=== PATIENT | male | born 1945 | race Caucasian/White ===

== ENCOUNTER → 2017-02-01 | Outpatient (REF) | payer MEDICARE, MEDICAID | LOC: M LAB REF 17:13 | PROVIDERS: ATTEND Internal Medicine | DX: Z51.81 Encounter for therapeutic drug level monitoring (principal); Z79.899 Other long term (current) drug therapy; F31.9 Bipolar disorder, unspecified ==

== ENCOUNTER → 2017-08-02 | Outpatient (REF) | payer MEDICARE, MEDICAID ==
[2017-08-07 00:06] LABS: Lyme Disease IgG/IgM Antibodie <0.91 ISR (0.00-0.90); Lyme Disease IgM Ab Quantitati <0.80 index (0.00-0.79)
== END ==
LOC: M LAB REF 17:07
PROVIDERS: ATTEND Internal Medicine
DX: Z51.81 Encounter for therapeutic drug level monitoring (principal); Z79.899 Other long term (current) drug therapy; F31.9 Bipolar disorder, unspecified; Z11.59 Encounter for screening for other viral diseases

== ENCOUNTER 2018-01-18 17:36 | Emergency (ER) | payer MEDICARE, MEDICAID ==
[2018-01-18] MEDS ORDERED: LIDOCAINE 2% MDV 20 ML VIAL As Ordered (18:10)
[2018-01-18] MEDS: LIDOCAINE 2% MDV 20 ML VIAL SC (18:30)
== END 2018-01-18 19:47 | disposition home or self-care (01) ==
LOC: M ED 17:36
DX: S63.282A Dislocation of proximal interphalangeal joint of right middle finger, initial encounter (principal); S83.92XA Sprain of unspecified site of left knee, initial encounter; S60.222A Contusion of left hand, initial encounter; S80.212A Abrasion, left knee, initial encounter; W11.XXXA Fall on and from ladder, initial encounter; Y92.099 Unspecified place in other non-institutional residence as the place of occurrence of the external cause; Y93.89 Activity, other specified; Y99.9 Unspecified external cause status; Z86.711 Personal history of pulmonary embolism; Z87.891 Personal history of nicotine dependence; Z79.01 Long term (current) use of anticoagulants; Z79.899 Other long term (current) drug therapy
CPT/HCPCS: 73130

== ENCOUNTER → 2018-02-19 | Outpatient (REF) | payer MEDICARE ==
[2018-02-19 19:22] LABS: LITHIUM LEVEL 0.39 MEQ/L (0.60-1.20)
== END ==
LOC: M LAB REF 17:41
DX: Z51.81 Encounter for therapeutic drug level monitoring (principal); F31.9 Bipolar disorder, unspecified; Z79.899 Other long term (current) drug therapy
CPT/HCPCS: 80178

== ENCOUNTER 2018-04-28 09:58 | Day surgery (SDC) | payer MEDICARE, MEDICAID ==
[2018-04-28] MEDS ORDERED: LIDOCAINE 2% INJ 100 MG/5 ML SDV (FOR ANES.) As Ordered (11:00)
[2018-04-28] MEDS ORDERED: PROPOFOL 200 MG/20 ML VIAL As Ordered ×3 (11:00→11:21)
== END 2018-04-28 12:10 | disposition home or self-care (01) ==
LOC: M OPP 09:58
DX: Z12.11 Encounter for screening for malignant neoplasm of colon (principal); Z86.010 Personal history of colon polyps; D12.4 Benign neoplasm of descending colon; D12.5 Benign neoplasm of sigmoid colon; K64.0 First degree hemorrhoids; K57.30 Diverticulosis of large intestine without perforation or abscess without bleeding; D68.51 Activated protein C resistance; N40.1 Benign prostatic hyperplasia with lower urinary tract symptoms; Z86.711 Personal history of pulmonary embolism; Z87.891 Personal history of nicotine dependence; Z79.01 Long term (current) use of anticoagulants; Z79.899 Other long term (current) drug therapy
CPT/HCPCS: 45385

== ENCOUNTER → 2018-08-20 | Outpatient (REF) | payer MEDICARE, MEDICAID ==
[~2018-08-20] MED LIST: FINA5TAB2; LITH150C; WARF-23
[2018-08-20 18:22] LABS: LITHIUM LEVEL 0.37 MEQ/L (0.60-1.20); RHEUMATOID FACTOR QUANT < 10.0 IU/ML (<15.0)
[2018-08-20 18:27] LABS: TESTOSTERONE 331 NG/DL (241-827)
[2018-08-26 00:06] LABS: Lyme Disease IgG Ab 18 kDa Ban Absent (.); Lyme Disease IgG Ab 23 kDa Ban Absent (.); Lyme Disease IgG Ab 28 kDa Ban Absent (.); Lyme Disease IgG Ab 30 kDa Ban Absent (.); Lyme Disease IgG Ab 39 kDa Ban Absent (.); Lyme Disease IgG Ab 41 kDa Ban Absent (.); Lyme Disease IgG Ab 45 kDa Ban Absent (.); Lyme Disease IgG Ab 58 kDa Ban Absent (.); Lyme Disease IgG Ab 66 kDa Ban Absent (.); Lyme Disease IgG Ab 93 kDa Ban Absent (.); Lyme Disease IgG West Blot Int Negative (.); Lyme Disease IgG/IgM Antibodie 0.98 ISR (0.00-0.90); Lyme Disease IgM Ab 23 kDa Ban Absent (.); Lyme Disease IgM Ab 39 kDa Ban Absent (.); Lyme Disease IgM Ab 41 kDa Ban Absent (.); Lyme Disease IgM Ab Quantitati <0.80 index (0.00-0.79); Lyme Disease IgM West Blot Int Negative (.)
== END ==
LOC: M LAB REF 17:34
PROVIDERS: ATTEND Internal Medicine
DX: Z51.81 Encounter for therapeutic drug level monitoring (principal); Z79.01 Long term (current) use of anticoagulants; M25.50 Pain in unspecified joint; R53.83 Other fatigue

== ENCOUNTER → 2019-03-05 | Outpatient (REF) | payer MEDICARE, MEDICAID | LOC: M LAB REF 16:56 | PROVIDERS: ATTEND Internal Medicine | DX: F31.9 Bipolar disorder, unspecified (principal); Z51.81 Encounter for therapeutic drug level monitoring ==

== ENCOUNTER → 2019-10-05 | Outpatient (REF) | payer MEDICARE ==
[2019-10-08 00:06] LABS: Lyme Disease IgG/IgM Antibodie <0.91 ISR (0.00-0.90); Lyme Disease IgM Ab Quantitati <0.80 index (0.00-0.79)
== END ==
LOC: M LAB REF 16:32
PROVIDERS: ATTEND Internal Medicine
DX: F31.9 Bipolar disorder, unspecified (principal)

== ENCOUNTER → 2020-04-04 | Outpatient (REF) | payer MEDICARE | LOC: M LAB REF 17:32 | PROVIDERS: ATTEND Internal Medicine | DX: F31.9 Bipolar disorder, unspecified (principal) ==

== ENCOUNTER → 2020-10-11 | Outpatient (REF) | payer MEDICARE ==
[2020-10-12 13:35] LABS: LITHIUM LEVEL 0.38 MEQ/L (0.60-1.20); RHEUMATOID FACTOR QUANT < 10.0 IU/ML (<15.0)
== END ==
LOC: M LAB REF 12:07
PROVIDERS: ATTEND Internal Medicine
DX: M15.9 Polyosteoarthritis, unspecified (principal); Z51.81 Encounter for therapeutic drug level monitoring; F31.9 Bipolar disorder, unspecified

== ENCOUNTER → 2021-01-05 | Outpatient (CLI) | payer MEDICARE ==
--- NOTE | 2021-01-05 15:41 | REP ---
INDICATION: LT LEG PAIN SWELLING ? DVT COMPARISON: None. TECHNIQUE: Donovan scale and color Doppler evaluation left lower extremity using linear high frequency transducer. FINDINGS: Ultrasound examination of the left lower extremity deep venous structures from the common femoral vein to the popliteal vein demonstrates normal compressibility flow and wave patterns in response to respiration and augmentation. Evaluation below the popliteal vein is somewhat limited due to edema, but no obvious thrombus identified in the visualized in peroneal, anterior or posterior tibial veins. Right common femoral vein is patent. IMPRESSION: No evidence for deep venous thrombosis. <Electronically signed by Kane Daigle > 01/05/21 [id number]
== END ==
LOC: M RAD 14:17
PROVIDERS: ATTEND Nurse Practitioner Adult Health
DX: M79.605 Pain in left leg (principal)

== ENCOUNTER → 2021-04-18 | Outpatient (REF) | payer MEDICARE | LOC: M LAB REF 16:41 | PROVIDERS: ATTEND Internal Medicine | DX: Z51.81 Encounter for therapeutic drug level monitoring (principal) ==

== ENCOUNTER → 2021-10-10 | Outpatient (CLI) | payer MEDICARE | LOC: M CARPUL 09:19 | PROVIDERS: ATTEND Internal Medicine | DX: R60.9 Edema, unspecified (principal) ==

== ENCOUNTER 2022-05-17 16:11 | Inpatient (IN) | payer MEDICARE ==
[~2022-05-17] VITALS: Ht 177.8 cm; Wt 99.8 kg
[2022-05-17] MEDS ORDERED: HYDROmorphone 4MG TABLET PO PRN (16:40)
[2022-05-17] MEDS ORDERED: ONDANSETRON 4MG TAB PO PRN (16:40)
[2022-05-17] MEDS: HYDROMORPHONE HCL 0.5 MG/ 0.5 ML SYRINGE (J1170 PER 1) IV PRN ×2 (17:03→17:37)
[2022-05-17] MEDS ORDERED: ISOVUE-370 76% 100ML VIAL As Ordered ONE (17:05)
[2022-05-17] MEDS ORDERED: diazePAM 10MG/2ML SYRINGE (J3360 PER 5MG) IV ONE (20:25)
[2022-05-17] MEDS ORDERED: METHOCARBAMOL 1,000 MG/10 ML VIAL (J2800) IV ONE (23:25)
[2022-05-17] MEDS ORDERED: ACETAMINOPHEN TAB 650MG DOSE (2X325MG) PO PRN (23:55)
[2022-05-17] MEDS ORDERED: HYDROMORPHONE HCL 0.5 MG/ 0.5 ML SYRINGE (J1170 PER 1) IV PRN (23:55)
[2022-05-18] VITALS (9 sets, daily range): BP systolic 151–184; BP diastolic 73–85; O2SAT 92–95
[2022-05-18] MEDS: HYDROMORPHONE HCL 0.5 MG/ 0.5 ML SYRINGE (J1170 PER 1) IV PRN ×5 (01:04→21:14)
[2022-05-18 01:13] LABS: BASO # 0.1 10^3/uL (0.0-0.2); BASO % 0.4 % (0.0-1.0); EOS % 0.1 % (0.0-3.0); HEMATOCRIT 48.3 % (42.0-52.0); HEMOGLOBIN 16.3 g/dl (13.5-17.5); LYMPH # 0.8 10^3/uL (1.5-5.0); MEAN CORPUSCULAR HEMOGLOBIN 30.6 pg (27.0-33.0); MEAN CORPUSCULAR HGB CONC 33.7 g/dl (32.0-36.5); MEAN CORPUSCULAR VOLUME 90.6 fl (80.0-96.0); MONO # 0.5 10^3/uL (0.0-0.8); MONO % 3.3 % (2.0-8.0); NEUTROPHILS # 12.5 10^3/uL (1.5-8.5); NEUTROPHILS % 89.6 % (36.0-66.0); PLATELET COUNT, AUTOMATED 258 10^3/uL (150-450); RED BLOOD COUNT 5.33 10^6/uL (4.30-6.10)
[2022-05-18 01:45] LABS: RSV AMPLIFICATION NEGATIVE (NEGATIVE)
[2022-05-18 01:51] LABS: CALCIUM LEVEL 9.3 MG/DL (8.8-10.2); CREATININE FOR GFR 1.66 MG/DL (0.70-1.30); MAGNESIUM LEVEL 2.1 MG/DL (1.8-2.4); POTASSIUM SERUM 4.1 MEQ/L (3.5-5.1)
[2022-05-18] MEDS ORDERED: KETO2SHA8 TOP (04:03)
[2022-05-18] MEDS ORDERED: FINA5TAB2 PO (04:03)
[2022-05-18] MEDS ORDERED: WARF-23 PO (04:03)
[2022-05-18] MEDS ORDERED: LITH150C PO (04:03)
[2022-05-18 07:34] LABS: HEMATOCRIT 46.5 % (42.0-52.0); HEMOGLOBIN 15.7 g/dl (13.5-17.5); MEAN CORPUSCULAR HEMOGLOBIN 31.4 pg (27.0-33.0); MEAN CORPUSCULAR HGB CONC 33.8 g/dl (32.0-36.5); PLATELET COUNT, AUTOMATED 245 10^3/uL (150-450); WHITE BLOOD COUNT 12.6 10^3/uL (4.0-10.0)
[2022-05-18 08:15] LABS: ALBUMIN 3.6 GM/DL (3.2-5.2); BILIRUBIN,TOTAL 0.7 MG/DL (0.2-1.0); CALCIUM LEVEL 9.1 MG/DL (8.8-10.2); CREATININE FOR GFR 1.51 MG/DL (0.70-1.30); GLOMERULAR FILTRATION RATE 47.9 (>42); POTASSIUM SERUM 4.3 MEQ/L (3.5-5.1); TOTAL PROTEIN 7.8 GM/DL (6.4-8.2)
[2022-05-18] MEDS ORDERED: diazePAM 10MG/2ML SYRINGE (J3360 PER 5MG) IV PRN (09:20)
[2022-05-18] MEDS: DOCUSATE SODIUM 100MG CAPSULE PO SCH ×2 (09:34→21:12)
[2022-05-18] MEDS: LIDOCAINE 5% (LIDODERM) PATCH TD SCH (09:59)
[2022-05-18] MEDS ORDERED: WARF-21 PO (10:11)
[2022-05-18] MEDS ORDERED: HOME MED LIST COMPLETE! XX SCH (10:15)
[2022-05-18 15:28] LABS: INR 3.41; PROTHROMBIN TIME 34.7 SECONDS (12.7-14.5)
[2022-05-18] MEDS: FINASTERIDE 5MG TAB PO SCH (16:19)
[2022-05-18] MEDS: BACLOFEN 10 MG TAB PO SCH ×2 (16:20→21:12)
[2022-05-18] MEDS ORDERED: LITHIUM CARBONATE 150 MG CAP PO SCH (21:00)
[2022-05-18] MEDS: **NOTE PATIENT COMMENT** MISC XX SCH (21:00)
[2022-05-19] VITALS (21 sets, daily range): BP systolic 160–172; BP diastolic 56–92; O2SAT 87–100
[2022-05-19 06:08] LABS: HEMATOCRIT 43.4 % (42.0-52.0); HEMOGLOBIN 14.1 g/dl (13.5-17.5); MEAN CORPUSCULAR HEMOGLOBIN 30.7 pg (27.0-33.0); MEAN CORPUSCULAR HGB CONC 32.5 g/dl (32.0-36.5); MEAN CORPUSCULAR VOLUME 94.6 fl (80.0-96.0); PLATELET COUNT, AUTOMATED 215 10^3/uL (150-450); RED BLOOD COUNT 4.59 10^6/uL (4.30-6.10); WHITE BLOOD COUNT 13.8 10^3/uL (4.0-10.0)
[2022-05-19 06:41] LABS: C REACTIVE PROTEIN QUANTITATIV 1.74 MG/DL (0.00-0.30); CALCIUM LEVEL 8.4 MG/DL (8.8-10.2); CREATININE FOR GFR 1.51 MG/DL (0.70-1.30); GLOMERULAR FILTRATION RATE 47.9 (>42); POTASSIUM SERUM 3.9 MEQ/L (3.5-5.1)
[2022-05-19] MEDS: BACLOFEN 10 MG TAB PO SCH ×3 (08:59→20:54)
[2022-05-19] MEDS: DOCUSATE SODIUM 100MG CAPSULE PO SCH ×2 (08:59→20:55)
[2022-05-19] MEDS: LIDOCAINE 5% (LIDODERM) PATCH TD SCH (09:00)
[2022-05-19] MEDS: HYDROMORPHONE HCL 0.5 MG/ 0.5 ML SYRINGE (J1170 PER 1) IV PRN ×4 (09:01→20:56)
[2022-05-19] MEDS: LITHIUM CARBONATE 150 MG CAP PO SCH ×2 (11:10→20:55)
[2022-05-19] MEDS: FINASTERIDE 5MG TAB PO SCH (16:23)
[2022-05-19] MEDS ORDERED: WARFARIN SOD 5MG TAB PO SCH (17:00)
[2022-05-19] MEDS: **NOTE PATIENT COMMENT** MISC XX SCH (21:00)
[2022-05-20] VITALS: BP 166/80
[2022-05-20] MEDS: HYDROMORPHONE HCL 0.5 MG/ 0.5 ML SYRINGE (J1170 PER 1) IV PRN ×2 (02:39→09:19)
[2022-05-20 04:00] VITALS: BP 154/84
[2022-05-20 07:05] LABS: HEMATOCRIT 50.6 % (42.0-52.0); MEAN CORPUSCULAR HEMOGLOBIN 30.7 pg (27.0-33.0); MEAN CORPUSCULAR HGB CONC 33.2 g/dl (32.0-36.5); MEAN CORPUSCULAR VOLUME 92.3 fl (80.0-96.0); PLATELET COUNT, AUTOMATED 225 10^3/uL (150-450); RED BLOOD COUNT 5.48 10^6/uL (4.30-6.10); WHITE BLOOD COUNT 12.4 10^3/uL (4.0-10.0)
[2022-05-20 07:06] LABS: HEMOGLOBIN 16.8 g/dl (13.5-17.5)
[2022-05-20 07:15] LABS: INR 1.9; PROTHROMBIN TIME 22.2 SECONDS (12.7-14.5)
[2022-05-20 07:31] LABS: CALCIUM LEVEL 9.1 MG/DL (8.8-10.2); CREATININE FOR GFR 1.49 MG/DL (0.70-1.30); GLOMERULAR FILTRATION RATE 48.7 (>42); POTASSIUM SERUM 4.3 MEQ/L (3.5-5.1)
[2022-05-20 08:39] VITALS: BP 167/78
[2022-05-20] MEDS: LITHIUM CARBONATE 150 MG CAP PO SCH ×2 (09:16→20:17)
[2022-05-20] MEDS: DOCUSATE SODIUM 100MG CAPSULE PO SCH ×2 (09:16→20:17)
[2022-05-20] MEDS: BACLOFEN 10 MG TAB PO SCH ×3 (09:16→20:17)
[2022-05-20] MEDS: LIDOCAINE 5% (LIDODERM) PATCH TD SCH (09:18)
[2022-05-20 12:32] VITALS: BP 160/66
[2022-05-20] MEDS: FINASTERIDE 5MG TAB PO SCH (17:07)
[2022-05-20] MEDS: RIVAROXABAN 10MG TAB (XARELTO) PO SCH (17:08)
[2022-05-20 20:00] VITALS: BP 176/98
[2022-05-20] MEDS: **NOTE PATIENT COMMENT** MISC XX SCH (21:00)
[2022-05-20] MEDS ORDERED: hydrALAZINE 20MG/ML 1ML VIAL (J0360 PER 20MG) IV PRN (22:25)
[2022-05-20 22:48] VITALS: BP 176/98
[2022-05-21 04:00] VITALS: BP 154/73
[2022-05-21 06:08] LABS: HEMATOCRIT 47.3 % (42.0-52.0); MEAN CORPUSCULAR HEMOGLOBIN 30.5 pg (27.0-33.0); MEAN CORPUSCULAR HGB CONC 33.8 g/dl (32.0-36.5); MEAN CORPUSCULAR VOLUME 90.3 fl (80.0-96.0); PLATELET COUNT, AUTOMATED 222 10^3/uL (150-450); RED BLOOD COUNT 5.24 10^6/uL (4.30-6.10)
[2022-05-21 06:19] LABS: INR 1.83; PROTHROMBIN TIME 21.6 SECONDS (12.7-14.5)
[2022-05-21 06:50] LABS: C REACTIVE PROTEIN QUANTITATIV 2.2 MG/DL (0.00-0.30); CALCIUM LEVEL 8.7 MG/DL (8.8-10.2); CREATININE FOR GFR 1.28 MG/DL (0.70-1.30); POTASSIUM SERUM 4.1 MEQ/L (3.5-5.1)
[2022-05-21 07:51] VITALS: BP 163/75
[2022-05-21] MEDS: LIDOCAINE 5% (LIDODERM) PATCH TD SCH (09:00)
[2022-05-21] MEDS: LITHIUM CARBONATE 150 MG CAP PO SCH (09:40)
[2022-05-21] MEDS: BACLOFEN 10 MG TAB PO SCH ×3 (09:40→20:23)
[2022-05-21] MEDS: DOCUSATE SODIUM 100MG CAPSULE PO SCH ×2 (09:40→20:23)
[2022-05-21 16:00] VITALS: BP 160/75
[2022-05-21] MEDS: RIVAROXABAN 10MG TAB (XARELTO) PO SCH (17:42)
[2022-05-21] MEDS: FINASTERIDE 5MG TAB PO SCH (17:42)
[2022-05-21 20:00] VITALS: BP 112/61
[2022-05-21] MEDS: **NOTE PATIENT COMMENT** MISC XX SCH (20:22)
[2022-05-21] MEDS: LITHIUM CARBONATE 300 MG CAP PO SCH (20:23)
[2022-05-21 20:44] LABS: FREE T4 1.18 NG/DL (0.76-1.46); THYROID STIMULATING HORMONE 1.29 uIU/ML (0.358-3.740)
[2022-05-22 04:00] VITALS: BP 131/67
[2022-05-22 08:41] VITALS: BP 167/77
[2022-05-22] MEDS: BACLOFEN 10 MG TAB PO SCH ×3 (09:18→20:50)
[2022-05-22] MEDS: LITHIUM CARBONATE 300 MG CAP PO SCH ×2 (09:18→20:51)
[2022-05-22] MEDS: DOCUSATE SODIUM 100MG CAPSULE PO SCH ×2 (09:18→20:50)
[2022-05-22] MEDS: LIDOCAINE 5% (LIDODERM) PATCH TD SCH (09:19)
[2022-05-22] MEDS ORDERED: PROHANCE 279.3MG/ML 15ML VIAL As Ordered ONE (11:12)
[2022-05-22 12:43] VITALS: BP 131/74
[2022-05-22 15:11] LABS: HEMATOCRIT 51.3 % (42.0-52.0); HEMOGLOBIN 16.7 g/dl (13.5-17.5); MEAN CORPUSCULAR HEMOGLOBIN 30.8 pg (27.0-33.0); MEAN CORPUSCULAR HGB CONC 32.6 g/dl (32.0-36.5); MEAN CORPUSCULAR VOLUME 94.5 fl (80.0-96.0); PLATELET COUNT, AUTOMATED 222 10^3/uL (150-450); RED BLOOD COUNT 5.43 10^6/uL (4.30-6.10); WHITE BLOOD COUNT 14.1 10^3/uL (4.0-10.0)
[2022-05-22 15:52] VITALS: BP 139/66
[2022-05-22] MEDS: FINASTERIDE 5MG TAB PO SCH (16:48)
[2022-05-22] MEDS: RIVAROXABAN 10MG TAB (XARELTO) PO SCH (17:56)
[2022-05-22 18:27] LABS: INR 1.15; PROTHROMBIN TIME 14.9 SECONDS (12.5-14.5)
[2022-05-22 18:45] LABS: CREATININE FOR GFR 1.5 MG/DL (0.70-1.30); GLOMERULAR FILTRATION RATE 48.3 (>42)
[2022-05-22 19:49] VITALS: BP_SYST 106; BP_SYST 130; BP_DIAS 73; BP_DIAS 84
[2022-05-22] MEDS: **NOTE PATIENT COMMENT** MISC XX SCH (20:49)
[2022-05-22] MEDS: ACETAMINOPHEN TAB 650MG DOSE (2X325MG) PO SCH (23:49)
[2022-05-23 01:15] VITALS: BP 143/77
[2022-05-23] MEDS: ACETAMINOPHEN TAB 650MG DOSE (2X325MG) PO SCH ×4 (05:20→23:01)
[2022-05-23 05:47] VITALS: BP 138/77
[2022-05-23 06:32] LABS: HEMATOCRIT 44.8 % (42.0-52.0); HEMOGLOBIN 15.2 g/dl (13.5-17.5); MEAN CORPUSCULAR HEMOGLOBIN 30.8 pg (27.0-33.0); MEAN CORPUSCULAR HGB CONC 33.9 g/dl (32.0-36.5); MEAN CORPUSCULAR VOLUME 90.9 fl (80.0-96.0); PLATELET COUNT, AUTOMATED 225 10^3/uL (150-450); RED BLOOD COUNT 4.93 10^6/uL (4.30-6.10); WHITE BLOOD COUNT 10.4 10^3/uL (4.0-10.0)
[2022-05-23 06:40] LABS: INR 1.26; PROTHROMBIN TIME 16.1 SECONDS (12.5-14.5)
[2022-05-23 06:59] LABS: CREATININE FOR GFR 1.32 MG/DL (0.70-1.30); POTASSIUM SERUM 4.1 MEQ/L (3.5-5.1)
[2022-05-23 07:00] LABS: CALCIUM LEVEL 8.7 MG/DL (8.8-10.2)
[2022-05-23] MEDS: DOCUSATE SODIUM 100MG CAPSULE PO SCH ×2 (08:26→20:17)
[2022-05-23] MEDS: LITHIUM CARBONATE 300 MG CAP PO SCH ×2 (08:27→20:17)
[2022-05-23] MEDS: LIDOCAINE 5% (LIDODERM) PATCH TD SCH (08:27)
[2022-05-23] MEDS: BACLOFEN 10 MG TAB PO SCH ×3 (08:27→20:17)
[2022-05-23 14:04] VITALS: BP 130/78
[2022-05-23] MEDS: FINASTERIDE 5MG TAB PO SCH (17:25)
[2022-05-23] MEDS: RIVAROXABAN 10MG TAB (XARELTO) PO SCH (17:25)
[2022-05-23 20:00] VITALS: BP 155/77
[2022-05-23] MEDS: TAMSULOSIN 0.4 MG CAP PO SCH (20:17)
[2022-05-23] MEDS: **NOTE PATIENT COMMENT** MISC XX SCH (20:33)
[2022-05-23] MEDS: MOM 30ML SUSPENSION UDC PO PRN (23:00)
[2022-05-24] MEDS: ACETAMINOPHEN TAB 650MG DOSE (2X325MG) PO SCH (05:03)
[2022-05-24 06:00] VITALS: BP 150/79
[2022-05-24 07:02] LABS: HEMOGLOBIN 15.5 g/dl (13.5-17.5); MEAN CORPUSCULAR HEMOGLOBIN 31.6 pg (27.0-33.0); MEAN CORPUSCULAR HGB CONC 34.4 g/dl (32.0-36.5); MEAN CORPUSCULAR VOLUME 91.8 fl (80.0-96.0); PLATELET COUNT, AUTOMATED 239 10^3/uL (150-450); WHITE BLOOD COUNT 15.1 10^3/uL (4.0-10.0)
[2022-05-24 07:05] LABS: INR 1.27; PROTHROMBIN TIME 16.2 SECONDS (12.5-14.5)
[2022-05-24 07:33] LABS: CALCIUM LEVEL 8.8 MG/DL (8.8-10.2); CREATININE FOR GFR 1.44 MG/DL (0.70-1.30); GLOMERULAR FILTRATION RATE 50.6 (>42); POTASSIUM SERUM 4.3 MEQ/L (3.5-5.1)
[2022-05-24 08:30] VITALS: BP 152/86
[2022-05-24 09:23] LABS: BASO # 0.1 10^3/uL (0.0-0.2); BASO % 0.6 % (0.0-1.0); EOS # 0.2 10^3/uL (0.0-0.5); EOS % 1.6 % (0.0-3.0); LYMPH # 0.7 10^3/uL (1.5-5.0); LYMPH % 4.6 % (24.0-44.0); MONO # 0.9 10^3/uL (0.0-0.8); NEUTROPHILS # 13.2 10^3/uL (1.5-8.5); NEUTROPHILS % 86.2 % (36.0-66.0)
[2022-05-24] MEDS: DOCUSATE SODIUM 100MG CAPSULE PO SCH ×2 (10:45→20:00)
[2022-05-24] MEDS: MOM 30ML SUSPENSION UDC PO PRN (10:46)
[2022-05-24] MEDS: LITHIUM CARBONATE 300 MG CAP PO SCH ×2 (10:46→20:00)
[2022-05-24] MEDS: BACLOFEN 10 MG TAB PO SCH ×3 (10:46→20:00)
[2022-05-24] MEDS: LIDOCAINE 5% (LIDODERM) PATCH TD SCH (10:47)
[2022-05-24] MEDS: ACETAMINOPHEN 500 MG TAB PO SCH ×2 (12:58→17:43)
[2022-05-24] MEDS: FINASTERIDE 5MG TAB PO SCH (16:42)
[2022-05-24] MEDS: RIVAROXABAN 20MG TAB (XARELTO) PO SCH (17:43)
[2022-05-24] MEDS: TAMSULOSIN 0.4 MG CAP PO SCH (20:00)
[2022-05-24] MEDS: **NOTE PATIENT COMMENT** MISC XX SCH (20:01)
[2022-05-25] MEDS: ACETAMINOPHEN 500 MG TAB PO SCH ×5 (00:14→23:05)
[2022-05-25 06:00] VITALS: BP 137/66
[2022-05-25 07:54] LABS: HEMATOCRIT 41.1 % (42.0-52.0); HEMOGLOBIN 13.7 g/dl (13.5-17.5); MEAN CORPUSCULAR HEMOGLOBIN 30.6 pg (27.0-33.0); MEAN CORPUSCULAR HGB CONC 33.3 g/dl (32.0-36.5); MEAN CORPUSCULAR VOLUME 91.9 fl (80.0-96.0); PLATELET COUNT, AUTOMATED 230 10^3/uL (150-450); RED BLOOD COUNT 4.47 10^6/uL (4.30-6.10); WHITE BLOOD COUNT 10.7 10^3/uL (4.0-10.0)
[2022-05-25 08:04] LABS: INR 1.37; PROTHROMBIN TIME 17.1 SECONDS (12.5-14.5)
[2022-05-25 08:38] LABS: CALCIUM LEVEL 8.4 MG/DL (8.8-10.2); CREATININE FOR GFR 1.36 MG/DL (0.70-1.30); GLOMERULAR FILTRATION RATE 54.1 (>42); LITHIUM LEVEL 0.66 MEQ/L (0.60-1.20); POTASSIUM SERUM 3.9 MEQ/L (3.5-5.1)
[2022-05-25] MEDS: BACLOFEN 10 MG TAB PO SCH ×3 (09:52→19:50)
[2022-05-25] MEDS: LIDOCAINE 5% (LIDODERM) PATCH TD SCH (09:52)
[2022-05-25] MEDS: DOCUSATE SODIUM 100MG CAPSULE PO SCH ×2 (09:52→19:56)
[2022-05-25] MEDS: LITHIUM CARBONATE 300 MG CAP PO SCH ×2 (09:52→19:50)
[2022-05-25] MEDS: RIVAROXABAN 20MG TAB (XARELTO) PO SCH (17:36)
[2022-05-25] MEDS: FINASTERIDE 5MG TAB PO SCH (17:36)
[2022-05-25] MEDS: TAMSULOSIN 0.4 MG CAP PO SCH (19:50)
[2022-05-25] MEDS: **NOTE PATIENT COMMENT** MISC XX SCH (19:59)
[2022-05-26] MEDS: ACETAMINOPHEN 500 MG TAB PO SCH ×4 (05:15→23:19)
[2022-05-26 05:20] VITALS: BP 133/68
[2022-05-26 05:57] LABS: INR 1.24; PROTHROMBIN TIME 15.9 SECONDS (12.5-14.5)
[2022-05-26] MEDS: BACLOFEN 10 MG TAB PO SCH ×3 (09:10→21:18)
[2022-05-26] MEDS: DOCUSATE SODIUM 100MG CAPSULE PO SCH ×2 (09:10→21:18)
[2022-05-26] MEDS: LITHIUM CARBONATE 300 MG CAP PO SCH ×2 (09:11→21:18)
[2022-05-26] MEDS: LIDOCAINE 5% (LIDODERM) PATCH TD SCH ×4 (09:11→21:38)
[2022-05-26] MEDS: FINASTERIDE 5MG TAB PO SCH (16:54)
[2022-05-26] MEDS: RIVAROXABAN 20MG TAB (XARELTO) PO SCH (16:54)
[2022-05-26] MEDS: **NOTE PATIENT COMMENT** MISC XX SCH (21:18)
[2022-05-26] MEDS: TAMSULOSIN 0.4 MG CAP PO SCH (21:18)
[2022-05-27 05:21] VITALS: BP 136/69
[2022-05-27] MEDS: ACETAMINOPHEN 500 MG TAB PO SCH ×4 (05:57→23:11)
[2022-05-27] MEDS: DOCUSATE SODIUM 100MG CAPSULE PO SCH ×2 (08:53→20:28)
[2022-05-27] MEDS: LITHIUM CARBONATE 300 MG CAP PO SCH ×2 (08:53→20:28)
[2022-05-27] MEDS: BACLOFEN 10 MG TAB PO SCH ×3 (08:53→20:28)
[2022-05-27] MEDS: FINASTERIDE 5MG TAB PO SCH (17:15)
[2022-05-27] MEDS: RIVAROXABAN 20MG TAB (XARELTO) PO SCH (17:15)
[2022-05-27] MEDS ORDERED: COLA100C5 PO (17:22)
[2022-05-27] MEDS ORDERED: FLOM0.4C39 PO (17:22)
[2022-05-27] MEDS ORDERED: LITH300C PO (17:22)
[2022-05-27] MEDS ORDERED: BACL10TA2 PO (17:22)
[2022-05-27] MEDS ORDERED: LIDO5TD TD (17:22)
[2022-05-27] MEDS ORDERED: XARE20TA PO (17:22)
[2022-05-27] MEDS ORDERED: ACET-683 PO (17:22)
[2022-05-27] MEDS: TAMSULOSIN 0.4 MG CAP PO SCH (20:28)
[2022-05-27] MEDS: **NOTE PATIENT COMMENT** MISC XX SCH (20:29)
[2022-05-28] MEDS: ACETAMINOPHEN 500 MG TAB PO SCH ×2 (05:16→12:14)
[2022-05-28 06:00] VITALS: BP 160/89
[2022-05-28] MEDS: DOCUSATE SODIUM 100MG CAPSULE PO SCH (09:00)
[2022-05-28] MEDS: BACLOFEN 10 MG TAB PO SCH (09:25)
[2022-05-28] MEDS: LITHIUM CARBONATE 300 MG CAP PO SCH (09:25)
[2022-05-28] MEDS: LIDOCAINE 5% (LIDODERM) PATCH TD SCH (09:26)
== END 2022-05-28 12:24 | DRG 552 ==
LOC: EDBD 16:11 → M ED 16:11 → M ED INP 23:13 → ENRESERV 05-18 12:52 → M ICU 05-18 14:09 → M PCU 05-18 17:46 → M MSPAV 05-23 01:15
PROVIDERS: ADMIT Family Medicine; ATTEND Student in an Organized Health Care Education/Training Program
DX: M51.26 Other intervertebral disc displacement, lumbar region (principal); D68.51 Activated protein C resistance; N17.9 Acute kidney failure, unspecified; N40.0 Benign prostatic hyperplasia without lower urinary tract symptoms; I87.2 Venous insufficiency (chronic) (peripheral); M62.830 Muscle spasm of back; M48.14 Ankylosing hyperostosis [Forestier], thoracic region; F31.9 Bipolar disorder, unspecified; N18.30 Chronic kidney disease, stage 3 unspecified; R10.31 Right lower quadrant pain; M47.816 Spondylosis without myelopathy or radiculopathy, lumbar region; M79.7 Fibromyalgia; D72.829 Elevated white blood cell count, unspecified; Z79.01 Long term (current) use of anticoagulants; Z79.899 Other long term (current) drug therapy; Z86.711 Personal history of pulmonary embolism; Z86.718 Personal history of other venous thrombosis and embolism; Z87.891 Personal history of nicotine dependence